=== PATIENT | female | born 1975 | race Caucasian/White ===

== ENCOUNTER 2018-06-09 11:13 | Emergency (ER) | payer MEDICAID ==
[2018-06-09 11:38] VITALS: BP 117/82; PULSE 151; TEMP 98.8; O2SAT 95
--- NOTE | 2018-06-09 12:06 | C.PDOC ---
History Of Present Illness 43 year old female presents to the ED for evaluation of anxiety and panic attacks for the last few minutes. Patient reports her mother is currently in the ICU, mother has recently been taken off life support, and began to feel palpitations and have panic attacks. Notes prior panic attacks. Requests medication to help with the anxiety and condition of her mother. Time Seen by Provider: 06/09/18 11:43 Chief Complaint (Nursing): Palpitations History Per: Patient History/Exam Limitations: no limitations Onset/Duration Of Symptoms: Hrs Current Symptoms Are (Timing): Still Present Past Medical History Reviewed: Historical Data, Nursing Documentation, Vital Signs Vital Signs: Last Vital Signs Temp 98.8 F 06/09/18 11:19 Pulse 151 H 06/09/18 11:19 Resp 18 06/09/18 11:19 BP 117/82 06/09/18 11:19 Pulse Ox 95 06/09/18 11:19 Family History: States: Unknown Family Hx - Social History Hx Alcohol Use: No Hx Substance Use: No Review Of Systems Cardiovascular: Positive for: Palpitations Psych: Positive for: Anxiety, Other (panic attacks. ) Physical Exam - Physical Exam Appears: Other (tearfull, emotional, tearful.) Skin: Normal Color, Warm, Dry Head: Atraumatic, Normacephalic Oral Mucosa: Moist Cardiovascular: Rhythm Regular, No Murmur Respiratory: Normal Breath Sounds, No Rales, No Rhonchi, No Wheezing Neurological/Psych: Oriented x3, Normal Speech Gait: Steady ED Course And Treatment ECG: Interpreted By Me, Viewed By Me ECG Rhythm: Sinus Rhythm ECG Interpretation: No Acute Changes Rate From EC O2 Sat by Pulse Oximetry: 95 (RA) Pulse Ox Interpretation: Normal Medical Decision Making Medical Decision Making: Plan/Orders: --Alprazolam Progress/Update: Patient stable for discharge home. Disposition Counseled Patient/Family Regarding: Diagnosis, Need For Followup - Disposition Disposition: HOME/ ROUTINE Disposition Time: 12:05 Condition: STABLE Instructions: Anxiety, Adult (DC) Forms: [facility] (Greenlandic) - POA Present On Arrival: None - Clinical Impression Clinical Impression: Anxiety, Grief reaction - PA / NEWS REPORTER / Resident Statement MD/DO has reviewed & agrees with the documentation as recorded. - Scribe Statement The provider has reviewed the documentation as recorded by the Scribe (Toshia Casas) All medical record entries made by the Scribe were at my direction and personally dictated by me. I have reviewed the chart and agree that the record accurately reflects my personal performance of the history, physical exam, medical decision making, and the department course for this patient. I have also personally directed, reviewed, and agree with the discharge instructions and disposition.
[2018-06-09 12:12] VITALS: RESP 16
== END 2018-06-09 12:11 | disposition home or self-care (01) ==
LOC: C.ER 11:13
DX: F43.22 Adjustment disorder with anxiety (principal)